=== PATIENT | male | born 1985 | race Caucasian/White ===

== ENCOUNTER → 2019-09-19 | Outpatient (REF) | payer OTHER ==
[2019-09-19 20:05] LABS: CHLAMYDIA DNA AMPLIFICATION NEGATIVE (NEGATIVE); GC DNA AMPLIFICATION NEGATIVE (NEGATIVE)
== END ==
LOC: M SFHCLERA 17:34
PROVIDERS: ATTEND Nurse Practitioner Family
DX: R10.30 Lower abdominal pain, unspecified (principal)